=== PATIENT | male | born 1940 | race African-American/Black ===

== ENCOUNTER 2025-11-19 20:59 | Emergency (ER) | payer MEDICARE ==
[~2025-11-19] VITALS: Ht 185.4 cm; Wt 125.2 kg
[2025-11-19] MEDS ORDERED: ALBU2.5V11 MC (21:25)
[2025-11-19] MEDS ORDERED: ATOR10TA PO (21:25)
[2025-11-19] MEDS ORDERED: DOCU100C36 PO (21:25)
[2025-11-19] MEDS ORDERED: PANT40TA49 PO (21:25)
[2025-11-19] MEDS ORDERED: BISA-79 PO (21:25)
[2025-11-19] MEDS ORDERED: ACET325T53 PO (21:25)
[2025-11-19] MEDS ORDERED: APIX5TAB PO (21:25)
[2025-11-19] MEDS ORDERED: GABA-532 PO (21:25)
[2025-11-19] MEDS ORDERED: FURO40TA5 PO (21:25)
[2025-11-19] MEDS ORDERED: SPIR25TA6 PO (21:25)
[2025-11-19] MEDS ORDERED: FINA1TAB11 PO (21:25)
[2025-11-19] MEDS ORDERED: ASCO500C17 PO (21:25)
[2025-11-19] MEDS ORDERED: TAMS-12 PO (21:25)
[2025-11-19] MEDS ORDERED: CHOL400T11 PO (21:25)
[2025-11-19 22:45] VITALS: BP 122/76; TEMP 99; O2SAT 95
[2025-11-20] MEDS ORDERED: ASCO-352 PO (15:42)
[2025-11-20] MEDS ORDERED: IPRA3AMP23 IH (15:42)
== END 2025-11-20 00:01 ==
LOC: ER 21:07
DX: S83.91XA Sprain of unspecified site of right knee, initial encounter (principal); M19.90 Unspecified osteoarthritis, unspecified site; I13.10 Hypertensive heart and chronic kidney disease without heart failure, with stage 1 through stage 4 chronic kidney disease, or unspecified chronic kidney disease; I48.91 Unspecified atrial fibrillation; N18.9 Chronic kidney disease, unspecified; N40.0 Benign prostatic hyperplasia without lower urinary tract symptoms; Z79.899 Other long term (current) drug therapy; W19.XXXA Unspecified fall, initial encounter; Y93.89 Activity, other specified; Y92.89 Other specified places as the place of occurrence of the external cause; Y99.8 Other external cause status
CPT/HCPCS: 73564-TC